=== PATIENT | female | born 1975 ===

== ENCOUNTER 2017-05-20 15:48 | Emergency (ER) | payer OTHER ==
[2017-05-20 16:33] VITALS: BP 114/78; PULSE 72; RESP 16; TEMP 98.1; O2SAT 100
[2017-05-20] MEDS ORDERED: Lidocaine 5% Patch TD STA (17:10)
--- NOTE | 2017-05-20 17:10 | C.PDOC ---
History Of Present Illness 41 year old female presents to the ED for evaluation of headache, neck and back pain which began around 3 weeks ago. Patient states her pain begins in upper back and radiates to her neck. She states headache is around her temporal region. Patient reports limited relief with Ibuprofen, but has not taken any medicine today. She denies history of migraines as well as fever, chills, trauma , or any other associated symptoms at this time. Time Seen by Provider: 05/20/17 16:56 Chief Complaint (Nursing): Headache History Per: Patient History/Exam Limitations: no limitations Onset/Duration Of Symptoms: Other (3 weeks ) Current Symptoms Are (Timing): Still Present Additional History Per: Patient Past Medical History Reviewed: Historical Data, Nursing Documentation, Vital Signs Vital Signs: Last Vital Signs Temp 98.1 F 05/20/17 16:30 Pulse 72 05/20/17 16:30 Resp 16 05/20/17 16:30 BP 114/78 05/20/17 16:30 Pulse Ox 100 05/20/17 17:13 - Medical History PMH: No Chronic Diseases Surgical History: No Surg Hx Family History: States: Unknown Family Hx - Social History Hx Alcohol Use: No Hx Substance Use: No - Immunization History Hx Tetanus Toxoid Vaccination: No Hx Influenza Vaccination: No Hx Pneumococcal Vaccination: No Review Of Systems Constitutional: Negative for: Fever, Chills Musculoskeletal: Positive for: Neck Pain, Back Pain Neurological: Positive for: Headache Physical Exam - Physical Exam Appears: Non-toxic, No Acute Distress Skin: Normal Color, Warm, Dry Head: Atraumatic, Normacephalic, No Tenderness (frontal ) Eye(s): bilateral: Normal Inspection, Other (no photophobia ) Ear(s): Bilateral: Normal Nose: Normal, No Discharge Oral Mucosa: Moist Throat: Normal, No Erythema, No Exudate Neck: Supple, Other (diffuse spasm to left posterior lateral neck ) Back: Muscle Spasm (diffuse, to left posterior lateral back ) Extremity: Normal ROM, Capillary Refill (less than 2 seconds ) Neurological/Psych: Oriented x3, Normal Speech, Normal Cognition Gait: Steady ED Course And Treatment O2 Sat by Pulse Oximetry: 100 (on RA) Pulse Ox Interpretation: Normal Progress Note: Flexeril PO, Lidoderm TD, Toradol IM and Tylenol PO administered. Disposition Counseled Patient/Family Regarding: Diagnosis, Need For Followup, Rx Given - Disposition Referrals: [facility] [Outside] [facility] [Outside] Disposition: HOME/ ROUTINE Disposition Time: 17:07 Condition: IMPROVED Additional Instructions: APLICA PARCHE AL [place] AFECTADA. MAX 3 PARCHES A LA VEZ. RETIRE EL PATCH 12 HORAS DESPUS DE LA APLICACIN INICIAL. ALTERNATIVAS 12 HORAS ACTIVADAS, 12 HORAS DESACTIVADAS. Prescriptions: Acetaminophen [Tylenol Extra Strength] 2 tab PO Q6 #30 tablet Cyclobenzaprine [Flexeril] 10 mg PO TID #15 tab Ibuprofen [Motrin] 600 mg PO Q6 #30 tab Lidocaine 5% [Lidoderm] 1 ea TD PRN PRN #10 patch PRN Reason: Pain, Moderate (4-7) Instructions: Tension Headache (ED), Muscle Spasm (ED) Forms: [employer] (Indonesian) Print Language: BOLIVIAN - Clinical Impression Clinical Impression: Headache, Back spasm - Scribe Statement The provider has reviewed the documentation as recorded by the Scribe (Joy Stinson) Provider Attestation: All medical record entries made by the Scribe were at my direction and personally dictated by me. I have reviewed the chart and agree that the record accurately reflects my personal performance of the history, physical exam, medical decision making, and the department course for this patient. I have also personally directed, reviewed, and agree with the discharge instructions and disposition.
[2017-05-20] MEDS ORDERED: Lidocaine 5% Patch TD ONE (17:37)
== END 2017-05-20 17:42 | disposition home or self-care (01) ==
LOC: C.ER 15:48
DX: R51 Headache (principal); M62.830 Muscle spasm of back
CPT/HCPCS: 96372; 99284; J1885

== ENCOUNTER 2017-07-27 11:00 | Emergency (ER) | payer SELFPAY ==
[2017-07-27 11:53] VITALS: BP 112/73; PULSE 88; RESP 18; TEMP 99; O2SAT 100
--- NOTE | 2017-07-27 12:31 | C.PDOC ---
History Of Present Illness 41 year old female presents to the ED for evaluation of bilateral knee and elbow pain which began 2 weeks ago. Patient states her symptoms are worse with movement. No evidence of swelling. No change in skin color. She has not taken any medicine to manage her pain. Denies fever, chills, rash, change in sensation , trauma, chest pain, symptoms, outdoor activities, or known history of arthritis. 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 History/Exam Limitations: language barrier Onset/Duration Of Symptoms: Other (2 weeks ) Current Symptoms Are (Timing): Still Present Additional History Per: Patient Past Medical History Reviewed: Historical Data, Nursing Documentation, Vital Signs Vital Signs: Last Vital Signs Temp 99 F 07/27/17 11:51 Pulse 88 07/27/17 11:51 Resp 18 07/27/17 11:51 BP 112/73 07/27/17 11:51 Pulse Ox 100 07/27/17 13:43 - Medical History PMH: No Chronic Diseases Surgical History: No Surg Hx Family History: States: Unknown Family Hx - Social History Hx Alcohol Use: No Hx Substance Use: No - Immunization History Hx Tetanus Toxoid Vaccination: No Hx Influenza Vaccination: No Hx Pneumococcal Vaccination: No Review Of Systems Constitutional: Negative for: Fever, Chills Musculoskeletal: Positive for: Other (bilateral knee and elbow pain ) Skin: Negative for: Rash Neurological: Negative for: Weakness, Numbness Physical Exam - Physical Exam Appears: Non-toxic, No Acute Distress Skin: Normal Color, Warm, Dry, No Other (erythema) Head: Atraumatic, Normacephalic Eye(s): bilateral: Normal Inspection, EOMI Nose: Normal Oral Mucosa: Moist Neck: Normal ROM, Supple Chest: Symmetrical, No Deformity, No Tenderness Cardiovascular: Rhythm Regular Respiratory: Normal Breath Sounds, No Rales, No Rhonchi, No Wheezing Extremity: Normal ROM (at all joints), Tenderness (to medial aspect of right knee), No Calf Tenderness, Capillary Refill (less than 2 seconds ), No Swelling Extremity: Bilateral: Atraumatic, Normal Color And Temperature, Normal ROM Pulses: Left Radial: Normal, Right Radial: Normal, Left Dorsalis Pedis: Normal, Right Dorsalis Pedis: Normal Neurological/Psych: Oriented x3, Normal Speech, Normal Cognition, Normal Motor, Normal Sensation ED Course And Treatment O2 Sat by Pulse Oximetry: 100 (on RA ) Pulse Ox Interpretation: Normal Progress Note: No evidence of infection or frature. Pulses strong and cap refill < 2 sec. No swelling. Atraumatic. Patient is resting comfortably, showing no signs of distress. Discussed with pt that arthralgias can have various casues and instructed to f/u with clinic in 1-2 days for further systemic w/u. Apartment Groundskeeper used to ensure understanding. Disposition - Disposition Referrals: [facility] at [facility] [Outside] Disposition: HOME/ ROUTINE Disposition Time: 12:26 Condition: STABLE Additional Instructions: Your were evaluated for your joint pains today. There area no signs of infections and broken bones. You should see your doctor in 2 days for further evaluation including possibile autoimmume and systemic causes. Rest and ice the area. Return to the ER if symtpoms persist or worsen. Tu fuiste evaluado por tus bonilla en las articulaciones hoy. No hay signos de infecciones y huesos rotos. Debera karie a etienne mdico en 2 newell para starla evaluaci n adicional que incluya posibles autoinmunes y causas sistmicas. Descanse y hiele la william. Regrese a la ER si los symtpoms persisten o empeoran. 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 - Scribe Statement The provider has reviewed the documentation as recorded by the Scribe (Joy Stinson) All medical record entries made by the Scribe were at my direction and personally dictated by me. I have reviewed the chart and agree that the record accurately reflects my personal performance of the history, physical exam, medical decision making, and the department course for this patient. I have also personally directed, reviewed, and agree with the discharge instructions and disposition.
== END 2017-07-27 12:40 | disposition home or self-care (01) ==
LOC: C.ER 11:00
DX: M25.562 Pain in left knee (principal); M25.561 Pain in right knee

== ENCOUNTER 2017-09-23 14:50 | Emergency (ER) | payer OTHER ==
[2017-09-23 15:04] VITALS: BMI 25.0
--- NOTE | 2017-09-23 16:48 | C.PDOC ---
History Of Present Illness 41 year old female presents to the ED with a cough for 1 week. Patient complains of body aches, and headache. Time Seen by Provider: 09/23/17 15:27 Chief Complaint (Nursing): Flu-like Symptoms History Per: Patient History/Exam Limitations: no limitations Onset/Duration Of Symptoms: Days (1 week) Current Symptoms Are (Timing): Still Present Location Of Pain: Headache Recent travel outside of the [place]: No Past Medical History Reviewed: Historical Data, Nursing Documentation, Vital Signs Vital Signs: Last Vital Signs Temp 98.3 F 09/23/17 17:49 Pulse 72 09/23/17 17:49 Resp 16 09/23/17 17:49 BP 103/71 09/23/17 17:49 Pulse Ox 100 09/23/17 17:49 - Medical History PMH: No Chronic Diseases Denies: Asthma Surgical History: No Surg Hx Family History: States: No Known Family Hx, Unknown Family Hx - Social History Hx Alcohol Use: No Hx Substance Use: No - Immunization History Hx Tetanus Toxoid Vaccination: No Hx Influenza Vaccination: No Hx Pneumococcal Vaccination: No Review Of Systems Except As Marked, All Systems Reviewed And Found Negative. Constitutional: Negative for: Fever, Chills Respiratory: Positive for: Cough. Negative for: Shortness of Breath Physical Exam - Physical Exam Appears: Well, Non-toxic Skin: Normal Color, Warm, Dry, No Rash Head: Atraumatic, Normacephalic Eye(s): bilateral: Normal Inspection, PERRL, EOMI Ear(s): Bilateral: Normal Oral Mucosa: Moist Throat: Normal Neck: Normal ROM, Supple Chest: Symmetrical, No Tenderness Cardiovascular: Rhythm Regular, No Friction Rub, No Murmur Respiratory: Normal Breath Sounds, No Rales, No Rhonchi, No Wheezing Gastrointestinal/Abdominal: Bowel Sounds (active), Soft, No Tenderness Back: Normal Inspection, No CVA Tenderness Neurological/Psych: Oriented x3, Normal Speech, Normal Motor, Normal Sensation Gait: Steady ED Course And Treatment O2 Sat by Pulse Oximetry: 99 (on Ra) Pulse Ox Interpretation: Normal Progress Note: On re-exam, the patient reports improvement of symptoms. Lungs are CTA, heart is RRR, abdomen is soft, non-tender and tolerating Po well. Ambulatory in the ED with steady gait. Medical Decision Making Medical Decision Making: IMPRESSION: Cough --CXR TIME:16:31 CXR FINDINGS: LINES AND TUBES: None. LUNG AND PLEURA: The lungs are well inflated and clear. HEART AND MEDIASTINUM: The heart is not enlarged. The hilar and mediastinal contours are within normal limits. SKELETAL STRUCTURES: The bony structures are within normal limits for the patient's age. VISUALIZED UPPER ABDOMEN: Normal. OTHER FINDINGS: None. IMPRESSION: No active pulmonary disease. Disposition - Disposition Referrals: [facility] [Outside] Disposition: HOME/ ROUTINE Disposition Time: 17:33 Condition: GOOD Additional Instructions: Follow up with the medical doctor within 1-2 days. Return if worsened Prescriptions: Ibuprofen [Motrin] 600 mg PO TID #21 tab Loratadine [Claritin] 10 mg PO DAILY #10 tab predniSONE [Prednisone] 20 mg PO BID #10 tab Instructions: Acute Bronchitis Forms: [employer] (Korean) Print Language: TELUGU - Clinical Impression Clinical Impression: Bronchitis - PA / PROVIDER RELATIONS REPRESENTATIVE / Resident Statement MD/DO has reviewed & agrees with the documentation as recorded. - Scribe Statement The provider has reviewed the documentation as recorded by the Scribe All medical record entries made by the Scribe were at my direction and personally dictated by me. I have reviewed the chart and agree that the record accurately reflects my personal performance of the history, physical exam, medical decision making, and the department course for this patient. I have also personally directed, reviewed, and agree with the discharge instructions and disposition.
[2017-09-23 17:50] VITALS: BP 103/71; PULSE 72; RESP 16; TEMP 98.3
[2017-09-24 22:16] VITALS: O2SAT 99
== END 2017-09-23 17:51 | disposition home or self-care (01) ==
LOC: C.ER 14:50
DX: J40 Bronchitis, not specified as acute or chronic (principal)